=== PATIENT | male | born 1980 | race Caucasian/White ===

== ENCOUNTER 2019-01-16 17:21 | Emergency (ER) | payer MEDICAID ==
[~2019-01-16] VITALS: Ht 167.6 cm; Wt 108.9 kg
[2019-01-16 17:45] VITALS: BP 157/105; Ht 167.6 cm; Wt 108.9 kg
== END 2019-01-16 20:36 | disposition left against medical advice (07) ==
LOC: ED 17:21
DX: Z53.21 Procedure and treatment not carried out due to patient leaving prior to being seen by health care provider (principal)